=== PATIENT | male | born 1945 | race Caucasian/White ===

== ENCOUNTER 2024-01-20 14:32 | Emergency (ER) | payer OTHER, SELFPAY ==
[2024-01-20] VITALS (7 sets, daily range): BP systolic 132–144; BP diastolic 74–90; BMI 25.0
--- NOTE | 2024-01-20 15:42 | ED.GENMED ---
History of Present Illness
General
Chief Complaint: Abdominal Pain
Source: patient
Exam Limitations: none
Time Seen by Provider: 01/20/24 15:03
Nursing documentation reviewed up to this point in time: agreed with
History of Present Illness
History of Present Illness:
78 y/o M with h/o seizure disorder
large left inguinal hernia for a long time, had surgical consultation with dr. malcolm last year but never followed through for scheudling his surgery
it has grwon signfiicantly in size
today he started feeling some cramping in his abdomen, nausea, heart burn, lost his appetite and then felt like his hernia pain was worse and was concerned there was an obstrutction
he also has had chorinc dec urinary stream but felt like maybe that was worse toay as well
n odsyruria, fever, chills, vomiting, cp.
Past History
Past History
ED Past Medical History: None
ED Past Surgical History: None
Social History
Tobacco: Non-smoker
Alcohol: None
Drug: None
Living: alone
Review of Systems
Review of Systems
Allergies reviewed?: Yes
All Other Systems: Not applicable
Phy Exam
Physical Exam
Physical Exam:
GENERAL: Alert , in no apparent distress
EYE: pupils equal and reactive
NECK: Supple
ENT: o/p clr, mmm.
CARDIAC: Regular rate and rhythm .
LUNGS: Clear breath sounds bilaterally, no acute respiratory distress, no wheezes/rales/rhonchi
ABDOMEN: Soft, nontender abdomen
L inguinal region and LLQ with LARGE reducible inguinal hernia; minimal discomfort, no skin changes; soft,
NEUROLOGICAL: Alert and oriented, no focal neuro deficits
SKIN: Warm and dry, skin intact.
MUSCULOSKELETAL: No edema, well perfused.
PSYCH: Normal and appropriate interaction.
Course
Orders/Labs/Results
Orders:
Orders
01/20/24 15:42
CT Abd/pel W Iv And Oral Contr Urgent
Comment:
Reason For Exam: large L inguinal hernia with nausea/belching
Bladder Scan- Treatment ONCE
Iohexol [Omnipaque] See Protocol PO NOW STA
01/20/24 15:43
Ondansetron Injectable [Zofran] 4 mg IV NOW STA
01/20/24 15:53
Complete Blood Count/With Diff Urgent
Comprehensive Metabolic Panel Urgent
Urinalysis Reflex To Culture Urgent
Date Specimen was Collected: 01/20/24
Time Specimen was Collected: 15:44
01/20/24 16:22
Electrocardiogram (*1) Urgent
Reason for Study: Abdominal Pain
EKG- Treatment ONCE
01/20/24 17:26
Troponin I Urgent
Abnormal Lab Results
01/20/24
15:53
WBC 12.2 H 10^3/uL
(4.8-10.8)
MCH 31.8 H pg
(27.0-31.0)
MPV 11.2 H fL
(7.4-10.4)
Absolute Neuts (auto) 10.0 H 10^3/uL
(1.4-6.5)
Absolute Monos (auto) 0.8 H 10^3/uL
(0.1-0.6)
Neutrophils % 82.0 H %
(42.2-75.2)
Lymphocytes % 10.3 L %
(20.5-51.1)
Urine Ketones 1+ A
(Negative)
01/20/24 15:53
01/20/24 15:53
Vital Signs
Initial and Last Documented VS:
Initial Vital Signs
Temp Pulse Resp BP Pulse Ox
98.3 F 83 16 144/84 96
01/20/24 14:33 01/20/24 14:33 01/20/24 14:33 01/20/24 14:33 01/20/24 14:33
Last Documented Vital Signs
Temp Pulse Resp BP Pulse Ox
98.5 F 86 16 137/90 99
01/20/24 18:45 01/20/24 18:45 01/20/24 18:45 01/20/24 20:14 01/20/24 18:45
MDM/Problems Addressed
Differential Diagnosis Includes:
hernia, obstruction
MDM/Problems Addressed:
78 y/o M with h/o ongoing L inguinal hernia which is growing over the year, was supposed to have surgery but delayed by the patient
started having some cramping and nausea and gerd today so he wanted to be sure no bowel obdstution
no vomiting
Pain is better than it was prior to arrival. He had no chest pain or shorTness of breath. His EKG shows a nonspecific T wave inversion inferiorly, no depressions laterally like previous. It appears slightly better than his previous old EKGs. His
troponin was normal. His white count was 12.2, urine was 1+ ketones no infection. His CT scan was reviewed
He has a large left-sided inguinal hernia with bowel but no obstruction he also has a right-sided inguinal hernia that contains part of his bladder. This is probably the cause of why he feels like his stream is chronically diminished. There is no
signs of infection and the patient has a PVR of 100. Discussed the case with ED attending. We both felt that the patient could be safely discharged for outpatient surgical follow-up for repair of his hernia
*Critical Care Note
Total Time (30-74mins, 75-104mins- exclusive of procedures): Not Applicable
ED Attending Note
-
Portions of this chart may have been created with voice recognition software.� Occasional wrong word or��sound alike� substitutions may have occurred due to the inherent limitations of voice recognition software.
Discharge Plan
Departure
Patient Disposition: Home (Routine Discharge)
Date of Disposition: 01/20/24
Time of Disposition: 19:54
Patient with high blood pressure during this ER visit?: No
Condition: Fair
Covid-19: Not Applicable
Discharge Problem:
Inguinal hernia
Instructions: Groin hernias
Prescriptions:
No Action
levetiracetam 500 MG tablet
1,000 mg PO BID Qty: 60 0RF
Referrals:
Norman Malcolm MD [Active] - Follow up in 1 week
Margaux Zhang DO [Family Provider] -
Activity Restrictions/Additional Instructions:
your inguinal hernia on the left is large and has loops of bowel but is not incarcerated. You need to have this taken care of by surgeon. Please call for an appointment. Make sure you are using a support and try to avoid heavy lifting
you also have an inguinal hernia on the right side and there contains a portion of your bladder. This is probably why you have some urinary issues. You had no signs of urinary retention so you did not need a Linares catheter. You had no signs of a
urine infection. But if should this get worse you need to be evaluated
Interventions
Interventions:
*Risk Screen - Suicide Last Done: 01/20/24 14:33
*General Assessment Last Done: 01/20/24 14:33
*Neglect/Abuse Screening Last Done: 01/20/24 14:33
ED- Fall Risk Assessment Last Done: 01/20/24 15:54
*ED COVID-19 Vaccine History Last Done: 01/20/24 15:54
*Nursing Disposition Last Done: 01/20/24 20:20
IC-Shqlon-Fppoetjzem Assessment Last Done: 01/20/24 15:54
Discharge Date and Time
Discharge Date/Time: 01/20/24 20:22
Print Language: MAORI
[2024-01-20] MEDS: OMNIPAQUE 50 ML PO (16:02)
[2024-01-20] MEDS: ZOFRAN 4 MG IV (16:02)
[2024-01-20 16:12] LABS: % Basophils 0.6 % (0-2); % Eosinophils 0.2 % (0-6); % Immature Granulocytes 0.3 % (0-0.5); % Lymphocytes 10.3 % (20.5-51.1); % Monocytes 6.6 % (1.7-9.3); Absolute Basophils 0.1 10^3/uL (0-0.2); Absolute Lymphocytes 1.3 10^3/uL (1.2-3.4); Absolute Monocytes 0.8 10^3/uL (0.1-0.6); Hematocrit 40.7 % (39.0-52.0); Mean Corp Hgb Conc. 36.9 g/dL (33.0-37.0); Mean Corpuscular Hgb 31.8 pg (27.0-31.0); Mean Corpuscular Volume 86.2 fL (80.0-94.0); Mean Platelet Volume 11.2 fL (7.4-10.4); Nucleated Red Blood Cells % 0 % (-); Platelet Count 157 10^3/uL (130-400); Red Blood Cell Count 4.72 10^6/uL (4.70-6.10); Red Cell Dist. Width 13.2 % (11.5-14.5); White Blood Cell Count 12.2 10^3/uL (4.8-10.8)
[2024-01-20 16:13] LABS: Urine Albumin Negative (Neg - Trace); Urine Bilirubin Negative (Negative); Urine Character Clear (Clear); Urine Color Yellow; Urine Glucose Negative (Negative); Urine Ketone 1+ (Negative); Urine Leukocyte Negative (Negative); Urine Nitrite Negative (Negative); Urine Occult Blood Negative (Negative); Urine Specific Gravity 1.015 (<1.030); Urine Urobilinogen Negative (Neg - 1+)
[2024-01-20 16:25] LABS: ALT (SGPT) 23 U/L (0-50); AST (SGOT) 36 U/L (17-59); Albumin 4.5 g/dl (3.5-5.0); Alkaline Phosphatase 57 U/L (38-126); Blood Urea Nitrogen 13 mg/dl (9-20); Calcium 9.8 mg/dl (8.4-10.2); Carbon Dioxide 25 mmol/L (22-30); Chloride 104 mmol/L (98-107); Estimated Creatinine Clearance 61 ml/min; Glucose 99 mg/dl (70-99); Potassium 4.1 mmol/L (3.5-5.1); Sodium 140 mmol/L (135-145); Total Bilirubin 0.9 mg/dl (0.2-1.3); Total Protein 6.8 g/dl (6.3-8.2); eGFR > 60.00
[2024-01-20 18:00] LABS: Troponin I < 0.012 ng/ml
== END 2024-01-20 20:22 | disposition home or self-care (01) ==
LOC: EMR 14:32
PROVIDERS: Physician Assistant; EMERGENCY PHYSICIAN Emergency Medicine; FAMILY PHYSICIAN Internal Medicine
DX: K40.90 Unilateral inguinal hernia, without obstruction or gangrene, not specified as recurrent (principal); R11.0 Nausea; R12 Heartburn; G40.909 Epilepsy, unspecified, not intractable, without status epilepticus; I10 Essential (primary) hypertension; E78.5 Hyperlipidemia, unspecified; Z87.891 Personal history of nicotine dependence
CPT/HCPCS: 99285; 96374; 51798; 74177; 80053; 81003; 84484; 85025; 93005; Q9967

== ENCOUNTER → 2024-10-19 10:06 | Outpatient (REF) | payer OTHER, SELFPAY | LOC: HWRAD 10:06 | PROVIDERS: ATTENDING PHYSICIAN Internal Medicine | DX: S93.402A Sprain of unspecified ligament of left ankle, initial encounter (principal) | CPT/HCPCS: 73610 ==

== ENCOUNTER → 2024-11-12 08:01 | Outpatient (REF) | payer OTHER, SELFPAY ==
[2024-11-12 09:58] LABS: % Basophils 0.7 % (0-2); % Eosinophils 2.3 % (0-6); % Immature Granulocytes 0.4 % (0-0.5); % Lymphocytes 27.8 % (20.5-51.1); % Monocytes 7.5 % (1.7-9.3); % Neutrophils 61.3 % (42.2-75.2); Absolute Basophils 0.1 10^3/uL (0-0.2); Absolute Eosinophils 0.2 10^3/uL (0-0.7); Absolute Monocytes 0.6 10^3/uL (0.1-0.6); Absolute Neutrophils 4.5 10^3/uL (1.4-6.5); Hematocrit 45.7 % (39.0-52.0); Hemoglobin 15.7 g/dL (13.0-18.0); Mean Corp Hgb Conc. 34.4 g/dL (33.0-37.0); Mean Corpuscular Volume 90.1 fL (80.0-94.0); Nucleated Red Blood Cells % 0 % (-); Platelet Count 145 10^3/uL (130-400); Red Blood Cell Count 5.07 10^6/uL (4.70-6.10); Red Cell Dist. Width 13.2 % (11.5-14.5); White Blood Cell Count 7.3 10^3/uL (4.8-10.8)
[2024-11-12 12:19] LABS: ALT (SGPT) 25 U/L (0-50); AST (SGOT) 28 U/L (17-59); Albumin 4.6 g/dl (3.5-5.0); Alkaline Phosphatase 62 U/L (38-126); Blood Urea Nitrogen 12 mg/dl (9-20); Calcium 9.5 mg/dl (8.4-10.2); Carbon Dioxide 24 mmol/L (22-30); Chloride 108 mmol/L (98-107); Glucose 96 mg/dl (70-99); HDL Cholesterol 47 mg/dl; LDL Cholesterol, Calculated 110 mg/dl; Potassium 4.1 mmol/L (3.5-5.1); Sodium 144 mmol/L (135-145); Total Bilirubin 0.6 mg/dl (0.2-1.3); Total Cholesterol 186 mg/dl (50-199); Total Protein 6.9 g/dl (6.3-8.2); Triglyceride 149 mg/dl (10-149); Very Low Density Lipoprotein 29 mg/dl (0-30); eGFR > 60.00
== END ==
LOC: HWLAB 08:01
PROVIDERS: ATTENDING PHYSICIAN Internal Medicine
DX: R03.0 Elevated blood-pressure reading, without diagnosis of hypertension (principal); S93.402A Sprain of unspecified ligament of left ankle, initial encounter; G47.9 Sleep disorder, unspecified; G47.33 Obstructive sleep apnea (adult) (pediatric)
CPT/HCPCS: 36415; 80053; 80061; 85025

== ENCOUNTER 2025-07-15 21:00 | Emergency (ER) | payer OTHER, SELFPAY ==
[2025-07-15 21:16] VITALS: BP 139/76
[2025-07-15 21:45] LABS: Hematocrit 46.8 % (39.0-52.0); Hemoglobin 16.0 g/dL (13.0-18.0); Mean Corp Hgb Conc. 34.2 g/dL (33.0-37.0); Mean Corpuscular Volume 90.0 fL (80.0-94.0); Nucleated Red Blood Cells % 0 % (-); Platelet Count 141 10^3/uL (130-400); Red Cell Dist. Width 13.1 % (11.5-14.5)
[2025-07-15 22:07] LABS: ALT (SGPT) 25 U/L (0-50); AST (SGOT) 35 U/L (17-59); Albumin 4.8 g/dl (3.5-5.0); Alkaline Phosphatase 50 U/L (38-126); Blood Urea Nitrogen 15 mg/dl (9-20); Calcium 10.1 mg/dl (8.4-10.2); Carbon Dioxide 30 mmol/L (22-30); Chloride 99 mmol/L (98-107); Glucose 123 mg/dl (70-99); Potassium 4.1 mmol/L (3.5-5.1); Sodium 137 mmol/L (135-145); Total Protein 7.8 g/dl (6.3-8.2); eGFR > 60.00
[2025-07-16 01:13] VITALS: BMI 24.8
--- NOTE | 2025-07-16 01:14 | ED.GENMED ---
History of Present Illness
<Laura Linares MD - Last Filed: 07/16/25 03:53>
General
Chief Complaint: Abdominal Pain
Source: patient
Time Seen by Provider: 07/16/25 00:58
History of Present Illness
History of Present Illness:
79-year-old male presents emergency department with a history of bilateral inguinal hernias. He states that earlier today he noted that the left inguinal hernia started to be uncomfortable. He says usually he lays down and it gets smaller but this
has not been the case tonight. He also states he has not passed gas throughout the day today. He denies nausea, vomiting fever, chills, chest pain, dyspnea, back pain, urinary symptoms, or other complaints
Past History
<Laura Linares MD - Last Filed: 07/16/25 03:53>
Past History
ED Past Medical History: Other (Seizure, hypertension, ZULEIKA)
Social History
Tobacco: Non-smoker
Alcohol: None
Drug: None
Living: alone
Phy Exam
<Laura Linares MD - Last Filed: 07/16/25 03:53>
Physical Exam
Physical Exam:
GENERAL: Alert , in no apparent distress
EYE: pupils equal and reactive
NECK: Supple, no significant adenopathy.
ENT: o/p clr, mmm, poor dentition.
CARDIAC: Regular rate and rhythm .
LUNGS: Clear breath sounds bilaterally, no acute respiratory distress, no wheezes/rales/rhonchi
ABDOMEN: Soft, without focal tenderness, no r/g, no cvat
NEUROLOGICAL: Alert and oriented, no focal neuro deficits
SKIN: Warm and dry, skin intact.
MUSCULOSKELETAL: No edema, well perfused.
PSYCH: Normal and appropriate interaction.
GROIN: inguinal hernia bilat, L>>R, mild ttp noted, unable to reduce fully, soft, no skin changes
Course
<Laura Linares MD - Last Filed: 07/16/25 03:53>
Orders/Labs/Results
Orders:
Orders
07/15/25 21:29
CBC/With Diff [Complete Blood Count/With Diff] Urgent
Comprehensive Metabolic Panel Urgent
07/16/25 01:09
CT Abd/Pel (IV only)-[facility] only Urgent
Comment:
Reason For Exam: inguinal hernia, now n/v/pain
Abnormal Lab Results
07/15/25
21:29
WBC 14.9 H 10^3/uL
(4.8-10.8)
MPV 12.2 H fL
(7.4-10.4)
Abs Immat Gran (auto) 0.1 H 10^3/uL
(0-0.05)
Absolute Neuts (auto) 12.6 H 10^3/uL
(1.4-6.5)
Absolute Monos (auto) 0.8 H 10^3/uL
(0.1-0.6)
Neutrophils % 84.7 H %
(42.2-75.2)
Lymphocytes % 8.5 L %
(20.5-51.1)
Glucose 123 H mg/dl
(70-99)
07/15/25 21:29
07/15/25 21:29
Vital Signs
Initial and Last Documented VS:
Initial Vital Signs
Temp Pulse Resp BP Pulse Ox
36.8 C 83 18 139/76 98
07/15/25 21:16 07/15/25 21:16 07/15/25 21:16 07/15/25 21:16 07/15/25 21:16
Last Documented Vital Signs
Temp Pulse Resp BP Pulse Ox
36.8 C 92 18 116/68 95
07/15/25 21:16 07/16/25 03:27 07/16/25 03:27 07/16/25 03:27 07/16/25 03:27
<Carloz Mckenna MD - Last Filed: 07/16/25 06:31>
Orders/Labs/Results
Orders:
Orders
07/15/25 21:29
CBC/With Diff [Complete Blood Count/With Diff] Urgent
Comprehensive Metabolic Panel Urgent
07/16/25 01:09
CT Abd/Pel (IV only)-[facility] only Urgent
Comment:
Reason For Exam: inguinal hernia, now n/v/pain
Abnormal Lab Results
07/15/25
21:29
WBC 14.9 H 10^3/uL
(4.8-10.8)
MPV 12.2 H fL
(7.4-10.4)
Abs Immat Gran (auto) 0.1 H 10^3/uL
(0-0.05)
Absolute Neuts (auto) 12.6 H 10^3/uL
(1.4-6.5)
Absolute Monos (auto) 0.8 H 10^3/uL
(0.1-0.6)
Neutrophils % 84.7 H %
(42.2-75.2)
Lymphocytes % 8.5 L %
(20.5-51.1)
Glucose 123 H mg/dl
(70-99)
07/15/25 21:29
07/15/25 21:29
Vital Signs
Initial and Last Documented VS:
Initial Vital Signs
Temp Pulse Resp BP Pulse Ox
36.8 C 83 18 139/76 98
07/15/25 21:16 07/15/25 21:16 07/15/25 21:16 07/15/25 21:16 07/15/25 21:16
Last Documented Vital Signs
Temp Pulse Resp BP Pulse Ox
36.8 C 92 18 116/68 95
07/15/25 21:16 07/16/25 03:27 07/16/25 03:27 07/16/25 03:27 07/16/25 03:27
<Laura Linares MD - Last Filed: 07/16/25 03:53>
*Pulse Oximetry
SaO2: 98
Oxygen Mode of Delivery: Room air
<Carloz Mckenna MD - Last Filed: 07/16/25 06:31>
*Pulse Oximetry
Patient hypoxic: no (95%)
*Critical Care Note
Total Time (30-74mins, 75-104mins- exclusive of procedures): Not Applicable
<Laura Linares MD - Last Filed: 07/16/25 03:53>
Update Note
Update Note:
Patient presents to the Emergency Department with ____left inguinal pain
Number and Complexity of Problems Addressed at the Encounter
� Chronic conditions affecting care:
� Acute Exacerbation and/or Progression of Chronic Illness:
But
� Differential Diagnosis includes: But not limited to inguinal hernia, bowel obstruction, incarcerated hernia, strangulated hernia, etc. etc.
Amount and/or Complexity of Data to be Reviewed and Analyzed
� I performed an independent evaluation of and my interpretation is:
EKG:
CT:
Xrays:
Laboratory Studies:nonspecific leukocytosis, otherwise generally unremarkable
Other:
� Review of other/old records reveals:
� Clinical information was obtained by an independent historian:
� Prescriptions/Medications Considered but not given:
� Further testing considered but not performed:
Risk of Complications and/or Morbidity or Mortality of Patient Management
� Social determinants of health affecting care:
� Discussion with other providers (PCP, Hospitalists, Consultants, etc):
� Escalation of care including admission/observation vs risk of discharge considereds/o awaiting ct...which I suspect not c/w obstruction or other serious pathology. If unremarkable, pt will be discharged home with outpt surg
f/u.
<Carloz Mckenna MD - Last Filed: 07/16/25 06:31>
Update Note
Update Note:
Patient presents to the Emergency Department with ____left inguinal pain
Number and Complexity of Problems Addressed at the Encounter
� Chronic conditions affecting care:
� Acute Exacerbation and/or Progression of Chronic Illness:
But
� Differential Diagnosis includes: But not limited to inguinal hernia, bowel obstruction, incarcerated hernia, strangulated hernia, etc. etc.
Amount and/or Complexity of Data to be Reviewed and Analyzed
� I performed an independent evaluation of and my interpretation is:
EKG:
CT:
Xrays:
Laboratory Studies:nonspecific leukocytosis, otherwise generally unremarkable
Other:
� Review of other/old records reveals:
� Clinical information was obtained by an independent historian:
� Prescriptions/Medications Considered but not given:
� Further testing considered but not performed:
Risk of Complications and/or Morbidity or Mortality of Patient Management
� Social determinants of health affecting care:
� Discussion with other providers (PCP, Hospitalists, Consultants, etc):
� Escalation of care including admission/observation vs risk of discharge considereds/o awaiting ct...which I suspect not c/w obstruction or other serious pathology. If unremarkable, pt will be discharged home with outpt surg
f/u.
UPDATE (Carloz Mckenna MD)
I have seen and evaluated the patient after signout and reviewed all labs and imaging.
Focused HPI: 79-year-old male presents to the ER with pain from his inguinal hernia somewhat worse tonight. He says pain actually has improved greatly since initial assessment and reduction/palpation.
Physical exam: Awake and alert, nontoxic-appearing. Vital signs are normal. Abdomen is soft and nontender. He has large bilateral inguinal hernias that were both soft and reducible.
Medical Decision Makin-year-old male presents with pain from his inguinal hernia somewhat worse tonight. He says pain has greatly improved since initial assessment here in the ER. He did have a leukocytosis but labs were otherwise
unremarkable. CT showed bilateral hernias but no signs of obstruction. Incidental note made of concerning lesion in the right kidney that will need further workup. Spoke to patient about his presenting complaint which was his hernia�he says he
has talked with Dr. Malcolm about return the past but has been hesitant to move forward because of general fear of surgery. I encouraged him to follow-up once again with Dr. Malcolm. I also informed him of incidental finding on CT in his right
kidney and the need for close follow-up on this; I provided a copy of preliminary report for his records and follow-up. Urged him to touch base with his primary doctor and I sent a [facility] text to his PCP (Margaux Zhang) to help facilitate this
process. Stable for discharge at this point in time. All questions answered.
ED Attending Note
<Laura Linares MD - Last Filed: 07/16/25 03:53>
-
Portions of this chart may have been created with voice recognition software.� Occasional wrong word or��sound alike� substitutions may have occurred due to the inherent limitations of voice recognition software.
Discharge Plan
Departure
Patient Disposition: Home (Routine Discharge)
Date of Disposition: 07/16/25
Time of Disposition: 04:54
Patient with high blood pressure during this ER visit?: Yes
Condition: Good
Discharge Problem:
Inguinal hernia
Instructions: Groin hernia repair, BLOOD PRESSURE
Prescriptions:
No Action
levetiracetam 500 MG tablet
1,000 mg PO BID Qty: 60 0RF
Referrals:
Norman Malcolm MD [Active, Surgical] - Next open appointment
Margaux Zhang DO [Family Provider, Family Practice] - Call in 1-3 days for appt
Activity Restrictions/Additional Instructions:
IF YOU DEVELOP INCREASING/NEW/PERSISTENT PAIN, FEVER, VOMITING, DIZZINESS, OR OTHER WORRISOME SIGNS, GO TO THE ER IMMEDIATELY!
You had incidental findings on your CT that require follow-up�you should follow-up with your primary doctor as soon as possible to have further assessment of this.
Interventions
Interventions:
*General Assessment Last Done: 07/15/25 21:16
*Neglect/Abuse Screening Last Done: 07/15/25 21:16
*ED COVID-19 Vaccine History Last Done: 07/16/25 01:13
*ED Influenza Vaccine History Last Done: 07/16/25 01:13
[facility] Risk Assessment Tool Last Done: 07/16/25 01:02
*Risk Screen - Suicide (C-SSRS) Last Done: 07/15/25 21:16
*Nursing Disposition Last Done: 07/16/25 05:13
AX-Gxrnbq-Qsfnpxoaqm Assessment Last Done: 07/16/25 01:04
Discharge Date and Time
Discharge Date/Time: 07/16/25 05:22
Print Language: SLOVENIAN
[2025-07-16 03:27] VITALS: BP 116/68
== END 2025-07-16 05:22 | disposition home or self-care (01) ==
LOC: EMR 21:00
PROVIDERS: Student in an Organized Health Care Education/Training Program; EMERGENCY PHYSICIAN Emergency Medicine; FAMILY PHYSICIAN Internal Medicine
DX: K40.20 Bilateral inguinal hernia, without obstruction or gangrene, not specified as recurrent (principal); I10 Essential (primary) hypertension; N40.0 Benign prostatic hyperplasia without lower urinary tract symptoms
CPT/HCPCS: 99284; 74177; 80053; 85025; 96374; 96375; Q9967